=== PATIENT | female | born 1950 | race Caucasian/White ===

== ENCOUNTER 2020-05-08 07:51 | Outpatient (CLI) | payer MEDICARE, SELFPAY ==
[2020-05-08 08:01] LABS: Basophils Absolute Auto 0.05 K/mm3 (0.00-0.10); Basophils Percent Auto 1.1 % (0.0-1.0); Eosinophils Absolute Auto 0.09 K/mm3 (0.02-0.50); Eosinophils Percent Auto 1.9 % (1.0-6.0); Hematocrit 43.4 % (35.0-42.0); Immature Granulocyte Absolute 0.01 K/mm3 (0.00-0.00); Immature Granulocyte Percent A 0.2 % (0.0-0.0); Lymphocytes Percent Auto 31.6 % (18.0-42.0); Mean Corpuscular HGB Conc 32.3 g/dL (32.0-36.0); Mean Corpuscular Hemoglobin 28.2 pg (27.0-31.0); Mean Corpuscular Volume 87.5 fL (78.0-102.0); Monocytes Absolute Auto 0.36 K/mm3 (0.10-0.90); Monocytes Percent Auto 7.6 % (2.0-11.0); Neutrophils Absolute Auto 2.7 K/mm3 (1.7-7.2); Neutrophils Percent Auto 57.6 % (50.0-70.0); Platelet Count Result 219 K/mm3 (150-420); Red Blood Count 4.96 M/mm3 (4.20-5.40); White Blood Count 4.7 K/mm3 (4.8-10.8)
[2020-05-08 08:37] LABS: Alanine Aminotransferase 44 U/L (14-59); Albumin Level 3.7 g/dL (3.4-5.0); Alkaline Phosphatase 109 U/L (46-116); Anion Gap 10.3 mmol/L (7-16); Aspartate Amino Transferase 33 U/L (15-37); Bilirubin,Total 0.5 mg/dL (0.00-1.00); Blood Urea Nitrogen 14 mg/dL (7-18); Calcium 8.9 mg/dL (8.5-10.1); Carbon Dioxide 29 mmol/L (21-32); Chloride 105 mmol/L (98-108); Cholesterol 189 mg/dL (0-200); Estimated Glomerular Filt Rate 40; Glucose 109 mg/dL (70-99); HDL Direct 55 mg/dL (40-60); LDL Cholesterol Calculated 115 mg/dL (<130); Osmolality Calculated 291 mOsm/kg (285-295); Potassium 4.3 mmol/L (3.5-5.1); Sodium 140 mmol/L (136-145); Triglycerides 95 mg/dL (0-150)
== END 2020-05-08 07:52 | disposition home or self-care (01) ==
LOC: CHSLAB 07:53
PROVIDERS: PCP Family Medicine; Visit Provider Family Medicine
DX: Z13.6 Encounter for screening for cardiovascular disorders (principal); Z00.00 Encounter for general adult medical examination without abnormal findings
CPT/HCPCS: 36415; 80053; 80061; 85025

== ENCOUNTER 2020-06-10 09:04 | Emergency (ER) | payer MEDICARE, SELFPAY ==
[2020-06-10 09:09] VITALS: BP 138/97; PULSE 72; RESP 20; TEMP 36.8; O2SAT 100
--- NOTE | 2020-06-10 09:17 | ED.DENTAL ---
HPI - Dental/Oral General Chief complaint: Dental/Oral Stated complaint: tooth pain Time Seen by Provider: 06/10/20 09:17 Source: patient and RN notes reviewed Mode of arrival: ambulatory Limitations: no limitations History of Present Illness HPI Narrative: 69-year-old female who [facility] with complaints of dental pain to right lower molar where filling fell out of tooth on . Patient states that pain and swelling to gum didn't start till Wednesday on the . She has been taking Ibuprofen and Tylenol for her discomfort. Patient has numerous teeth on the bottom which have decay and are in need of repair or extraction. Patient states she has an appointment on the with her dentist. Patient has mild swelling to right lower jaw area with discomfort to jaw and gum. Patient states that pain is aggravated with eating and cold liquids, states has been maintaining soft diet. MD Complaint: tooth pain Location: Tooth # (28) Onset (ago): day(s) (3) Duration: constant Severity: mild Severity scale (1-10): 3 Relieving factors: NSAIDs Exacerbating factors: chewing and cold Context: history of dental caries Associated symptoms: gum swelling and other (right jaw pain) Treatment prior to arrival: oral analgesic Related Data Allergies Allergy/AdvReac Type Severity Reaction Status Date / Time Penicillins Allergy Intermediate Unknown Verified 06/10/20 09:19 Review of Systems Review of Systems: Narrative: CONSTITUTIONAL: Denies fever, chills, or sweats. EYES: Denies visual changes, redness, or discharge. ENT: Denies rhinorrhea, congestion, sore throat, or otalgia.Swelling gum area right lower tooth where filling fell out, with some mild swelling to right jaw region. Denies any difficulty with swallowing No Will angina noted. CARDIOVASCULAR: Denies chest pain, palpitations, or edema. RESPIRATORY: Denies cough or dyspnea. GASTROINTESTINAL: Denies abdominal pain, nausea, vomiting, or diarrhea. GENITOURINARY: Denies dysuria or hematuria. SKIN: Denies rash or itching. MUSCULOSKELETAL: Denies back pain, joint pain, or myalgia. NEUROLOGIC: Denies headache, numbness, or weakness. PSYCHIATRIC: Denies anxiety or depression. All systems reviewed & are unremarkable except as noted in HPI and below PMFSH Past Medical History Medical History (Updated 06/10/20 @ 10:08 by Tere Gabriel NP) Acarine dermatosis Surgical History Surgical History (Updated 06/10/20 @ 09:34 by Tere Gabriel NP) History of tubal ligation Hx of cholecystectomy Social History Social History (Updated 06/10/20 @ 09:34 by Tere Gabriel NP) Smoking status: Never smoker Alcohol intake: never Substance use: never Living arrangements: with family Occupation/Education: retired Gender identity (if verbalized by the patient): Female Comments At time of signature, agree with nursing past medical, surgical, social and family history. There is no relevant family history pertinent to the presenting complaint Exam Narrative: Exam Narrative: GENERAL: Well-appearing, well-nourished, and in no acute distress. HEAD: Normocephalic, atraumatic. EYES: PERRLA and EOMI. ENT: Nares clear, no rhinorrhea or epistaxis. Mucous membranes moist.TM's normal with good light reflex, throat pink with no swelling, No Will angina noted, redness and swelling around #28 tooth where filling fell out. Patient has numerous other teeth which are decayed. NECK: Supple.no lymphadenopathy CHEST: Clear to auscultation. No respiratory distress.SAO2 100% on room air. HEART: Regular rate and rhythm. No murmur heard. Normal peripheral pulses. ABDOMEN: Soft, nontender, nondistended, normal active bowel sounds. EXTREMITIES: Normal range of motion. No edema. SKIN: Warm, dry, no rash. NEURO: No focal deficits. Alert and oriented x3. Course Vital Signs Vital signs: Vital Signs Temperature 36.8 C 06/10/20 09:09 Pulse Rate 72 06/10/20 09:09 Respiratory Rate 20
== END 2020-06-10 09:43 | disposition home or self-care (01) ==
PROVIDERS: Emergency Provider Registered Nurse
DX: K04.7 Periapical abscess without sinus (principal); K08.89 Other specified disorders of teeth and supporting structures
CPT/HCPCS: 99213; G0463

== ENCOUNTER 2021-10-08 16:51 | Outpatient (CLI) | payer MEDICARE, SELFPAY ==
--- NOTE | ~2021-10-08 | XR_ITS ---
EXAMINATION: XR chest 2V EXAM DATE: 10/08/2021 17:20 INDICATION: Excessive weight loss in 3 wks . TECHNIQUE: Frontal and lateral projections of the chest obtained and reviewed. There is no prior manuelito dy for comparison. FINDINGS: The lungs are clear. There are no pleural effusions. The cardiomediastinal silhouette is within normal limits. There is no pneumothorax suspected. Mild lower thoracic dextroscoliosis. Ther e are cholecystectomy clips. IMPRESSION: No acute cardiopulmonary findings. 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
[2021-10-08 17:15] LABS: Basophils Absolute Auto 0.05 K/mm3 (0.00-0.10); Basophils Percent Auto 0.8 % (0.0-1.0); Eosinophils Absolute Auto 0.08 K/mm3 (0.02-0.50); Eosinophils Percent Auto 1.2 % (1.0-6.0); Hematocrit 42.8 % (35.0-42.0); Hemoglobin 13.8 g/dL (11.7-13.8); Immature Granulocyte Absolute 0.01 K/mm3 (0.00-0.00); Immature Granulocyte Percent A 0.2 % (0.0-0.0); Lymphocytes Absolute Auto 2.24 K/mm3 (1.10-4.50); Lymphocytes Percent Auto 34.6 % (18.0-42.0); Mean Corpuscular HGB Conc 32.2 g/dL (32.0-36.0); Mean Corpuscular Hemoglobin 28.9 pg (27.0-31.0); Mean Corpuscular Volume 89.7 fL (78.0-102.0); Mean Platelet Volume 9.6 fl (9.2-11.8); Monocytes Absolute Auto 0.51 K/mm3 (0.10-0.90); Monocytes Percent Auto 7.9 % (2.0-11.0); Neutrophils Absolute Auto 3.6 K/mm3 (1.7-7.2); Neutrophils Percent Auto 55.3 % (50.0-70.0); Platelet Count Result 243 K/mm3 (150-420); Red Blood Count 4.77 M/mm3 (4.20-5.40); White Blood Count 6.5 K/mm3 (4.8-10.8)
[2021-10-08 17:46] LABS: Alanine Aminotransferase 32 U/L (14-59); Albumin Level 3.9 g/dL (3.4-5.0); Alkaline Phosphatase 125 U/L (46-116); Anion Gap 10 mmol/L (8-16); Aspartate Amino Transferase 20 U/L (15-37); Bilirubin,Total 0.2 mg/dL (0.00-1.00); Blood Urea Nitrogen 14 mg/dL (7-18); Calcium 9.1 mg/dL (8.5-10.1); Carbon Dioxide 28 mmol/L (21-32); Chloride 105 mmol/L (98-108); Estimated Glomerular Filt Rate 38; Glucose 103 mg/dL (70-99); Magnesium 2.3 mg/dL (1.8-2.4); Osmolality Calculated 296 mOsm/kg (285-295); Potassium 3.6 mmol/L (3.5-5.1); Sodium 143 mmol/L (136-145); Thyroid Stimulating Hormone 3.45 uIU/mL (0.36-3.74); Total Protein 7.5 g/dL (6.4-8.2)
[2021-10-11 14:11] LABS: Vitamin D 25 Hydroxy 19 ng/mL (30-100)
== END 2021-10-08 16:52 | disposition home or self-care (01) ==
LOC: CHSLAB 16:54
PROVIDERS: PCP Nurse Practitioner Family; Visit Provider Nurse Practitioner Family
DX: R63.4 Abnormal weight loss (principal); E55.9 Vitamin D deficiency, unspecified
CPT/HCPCS: 36415; 71046; 80053; 82306; 82977; 83735; 84443; 85025

== ENCOUNTER 2021-10-10 12:06 | Outpatient (CLI) | payer MEDICARE, SELFPAY ==
--- NOTE | ~2021-10-10 | US_ITS ---
EXAMINATION: US abdomen complete EXAM DATE: 10/10/2021 14:54 INDICATION: Chronic Kidney Disease; stage 3 . TECHNIQUE: Multiple grayscale and Doppler images of the complete abdomen were obtained (by a technolo gist who performed the scan) and subsequently reviewed. There is no prior study for comparison. FINDINGS: The abdominal aorta is normal in caliber. Visualized portion IVC is patent. The pancreatic head a nd body are normal in appearance. The pancreatic tail is not visualized. There is echogenic liver parenchyma, hepatic steatosis. There are no focal liver lesions identified. There is no evidence of intrahepatic biliary duct dilation. Portal venous flow was seen in the he patopedal, normal direction and has normal Doppler waveform. Common bile duct measures 6 mm, which is normal. The gallbladder fossa is unremarkable. Right kidney: There is normal contour and echogenicity. It measures 10.0 x 3.8 x 4.6 centimeters. There are no focal renal lesions identified. There is no hydronephrosis. Left kidney: There is normal contour and echogenicity. It measures 8.9 x 3.9 x 3.7 centimeters. Th ere are no focal renal lesions identified. There is no hydronephrosis. The spleen measures 9 cm in greatest dimension, with scattered calcified granulomata. IMPRESSION: 1. Hepatic steatosis. 2. Mild left renal atrophy. Reviewed, dictated and finalized at location G. EY RODMAN
[2021-10-10 12:32] LABS: Add Urine Microscopic? YES; Appearance Urine Clear (Clear); Bilirubin Urine Negative (Negative); Blood Urine Negative (Negative); Color Urine Light Yellow (Yellow); Glucose Urine UA Negative (Negative); Ketones Urine Negative (Negative); Leukocyte Esterase Ur 1+ (Negative); Nitrate Urine Negative (Negative); Protein Urine Negative (Negative); Specific Grav Ur <= 1.005 (1.010-1.020); Urobilinogen Urine 0.2 mg/dL (0.2-1.0); pH Urine 5.5 (5.0-8.0)
[2021-10-10 12:58] LABS: Bacteria Urine 1+ /hpf; RBC Urine 0-2 /hpf (0-2); Squamous Epithelial Cell Urine Few /hpf (Few)
[2021-10-10 13:06] LABS: Creatinine Urine 40.13 mg/dL (40-278); MALB Creatinine Ratio 32.3 mg/g (0-30); Microalbumin Urine Random < 13.0 mg/L
[2021-10-10 13:08] LABS: GGT 30 U/L (5-55)
== END 2021-10-10 12:07 | disposition home or self-care (01) ==
PROVIDERS: PCP Nurse Practitioner Family; Visit Provider Nurse Practitioner Family
DX: N18.30 Chronic kidney disease, stage 3 unspecified (principal); R79.89 Other specified abnormal findings of blood chemistry; R74.8 Abnormal levels of other serum enzymes
CPT/HCPCS: 36415; 76700; 81001; 82043; 82977

== ENCOUNTER 2022-12-07 03:12 | Emergency (ER) | payer MEDICARE, SELFPAY ==
--- NOTE | ~2022-12-07 | XR_ITS ---
EXAMINATION: XR knee LT 3V DATE: 12/07/2022 03:31 INDICATION: Nontraumatic left knee pain TECHNIQUE: Anteroposterior, oblique and crosstable lateral views of the left knee were obtained COMPARISON: None. FINDINGS: Alignment is normal. No fracture. Slight joint space narrowing in the medial compartment consistent with at least minimal osteoarthritis which could be underestimated on nonweightbearing imaging. No aga int effusion/layering lipohemarthrosis. Tara-Stieda lesion with small amount of heterotopic oss ification along the medial side of the medial femoral condyle consistent with chronic medial collater al ligament sprain. Soft tissues are unremarkable. IMPRESSION: 1. No left knee joint effusion or acute onset mild to . 2. Tara-Stieda lesion consistent with chronic medial collateral ligament sprain. 3. At least mild osteoarthritis at the medial compartment of the left knee. 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
[2022-12-07 03:18] VITALS: BP 183/105; PULSE 77; RESP 16; TEMP 36.5; O2SAT 100
--- NOTE | 2022-12-07 03:18 | WPDEDEXPGENP ---
HPI - General Ped General Chief complaint: Extremity Injury, Lower Stated complaint: knee injury Time Seen by Provider: 12/07/22 03:17 Source: patient Mode of arrival: wheelchair Limitations: no limitations Nursing Documentation: reviewed/agree History of Present Illness HPI narrative: Patient complains of left knee pain that started while walking her dog. She does not remember sustaining any injury Or trauma. She has had her about 2 weeks ago but that went away. And she also said back in September when she was flying a plain and was in her seat after that she had pain for about 3 days and then it went away. In the same left knee. she says her some walk on it she took ibuprofen without any relief she also put some Biofreeze on it without any relief. Is worse when she walks on it. It hurts to straighten it out or bend. She had some back pain earlier but that is gone. Denies any other complaints. Reasonably healthy has not seen a doctor in over a year. She is not any medications Related Data Home Medications Medication Instructions Recorded Confirmed No Home Medications 12/07/22 12/07/22 Allergies Allergy/AdvReac Type Severity Reaction Status Date / Time clindamycin Allergy Severe Rash Verified 12/07/22 03:21 Penicillins Allergy Mild Rash Verified 12/07/22 03:21 Pediatric Review of Systems Constitutional: Denies fever Eyes: Denies eye pain ENT: Denies ear pain Cardiovascular: Denies chest pain Respiratory: Denies cough or dyspnea Gastrointestinal: Denies abdominal pain, nausea, vomiting or diarrhea Genitourinary: Denies dysuria Musculoskeletal: Reports back pain, joint swelling and joint pain PMFSH Past Medical History Medical History Acarine dermatosis Hammer toe of right foot Surgical History Surgical History History of tubal ligation Hx of cholecystectomy Family History Family History Mother Family history of type 2 diabetes mellitus Ovarian cancer Father Acute myocardial infarction Social History Social History Smoking status: Never smoker Alcohol intake: never Substance use: never Living arrangements: with family Additional living arrangements comments: Has 2 children: Daughter lives locally, Son lives in [place]. Occupation/Education: retired Gender identity (if verbalized by the patient): Female Pediatric Exam Narrative: Physical exam: left hip full range of motion nontender left knee he has slightly less than full extension. She is able flex it fine. Mild diffuse tenderness without any swelling or increased warmth or erythema. No joint line tenderness negative patellar apprehension test. Left knee is stable to anterior and posterior drawer test Bhanu. Stable to varus and valgus stress. Left ankle normal DP and PT pulse are +2. Medical Decision Making MDM Narrative Medical decision making narrative: Patient complains of relatively acute onset of left knee pain gradually worsening over the day. Not relieved with ibuprofen or Biofreeze. Pain is worse now. She had similar pain about 2 weeks ago. She has no other complaints. X-ray was done to rule arthritis dislocation fracture or tumor and patient was given Toradol 30 mg IM Knee immobilizer was placed. Evaluation was discussed questions were asked and answered and patient agree with plan. She is given a list of orthopedists that she could follow-up with she was instructed to get some crutches along with her knee immobilizer. Take Tylenol ibuprofen as needed for pain. Imaging Data Attestation: I personally reviewed and interpreted this imaging study as follows: My impression: x-ray of the left knee show no fracture or dislocation there may be
[2022-12-07] MEDS: KETOROLAC 30 MG/ML VIAL (*BKC) IM (03:32)
[2022-12-07 04:01] VITALS: BP 155/88; PULSE 68; RESP 12; O2SAT 97
== END 2022-12-07 04:03 | disposition home or self-care (01) ==
PROVIDERS: Emergency Provider Emergency Medicine
DX: M25.562 Pain in left knee (principal)
CPT/HCPCS: 73562; 96372; 99284; J1885; L1830

== ENCOUNTER 2023-12-14 06:42 | Emergency (ER) | payer MEDICARE, SELFPAY ==
--- NOTE | ~2023-12-14 | XR_ITS ---
Right wrist Technique: PA, oblique, lateral, and ulnar deviation views were obtained. Clinical History: Pain Findings: Possible small acute fracture the dorsal triquetrum on lateral view. No other fracture or d islocation seen. Joint spaces are preserved. Soft tissues are unremarkable. Impression: Probable small acute fracture of the dorsal triquetrum on lateral view. Reviewed, dictated and finalized at location . Impression: Probable small acute fracture of the dorsal triquetrum on lateral view.
--- NOTE | ~2023-12-14 | CT_ITS ---
Noncontrast CT scan of the right wrist CLINICAL HISTORY: Injury TECHNIQUE: Axial noncontrast imaging of the wrist was performed. Sagittal and coronal reformatted brian ges were constructed. Dose reduction technique was used on this scan by utilizing automated exposure control and iterative reconstruction technique. The dose-length product (DLP) was 384.26 mGy-cm. Findings: There is a small, acute, mildly displaced, linear fracture from the dorsal aspect of the tr iquetrum (axial image 59 for example, sagittal images 53-57). No other fracture or dislocation seen. Joint spaces are intact. There is mild soft tissue swelling overlying the fracture site. No other gross soft tissue abnormalit y seen. IMPRESSION: Small acute fracture of the dorsal triquetrum, as detailed above, which correlates with plain radiogr aphs. Reviewed, dictated and finalized at [facility]. IMPRESSION: Small acute fracture of the dorsal triquetrum, as detailed above, which correla darlene with plain radiographs.
[2023-12-14 06:48] VITALS: BP 176/84; PULSE 85; RESP 18; TEMP 36.3; O2SAT 97
--- NOTE | 2023-12-14 06:57 | ED.UPPEXIN ---
HPI - Extremity Injury (Upper) General Chief Complaint: Extremity Injury, Upper <Jamari Mccarthy MD - Last Filed: 12/14/23 07:00> Stated Complaint: fall <Jamari Mccarthy MD - Last Filed: 12/14/23 07:00> Time Seen by Provider: 12/14/23 06:55 <Jamari Mccarthy MD - Last Filed: 12/14/23 07:00> Source: patient <Jamari Mccarthy MD - Last Filed: 12/14/23 07:00> Mode of arrival: ambulatory <Jamari Mccarthy MD - Last Filed: 12/14/23 07:00> History of Present Illness HPI narrative: Patient is a 73-year-old female with significant past medical history presents today with a right wrist injury. Patient states she was at [facility] last night o'clock and fell on her right wrist. She fell with outstretched arm. She says that is very painful rash around the right wrist joint. <Jamari Mccarthy MD - Last Filed: 12/14/23 07:00> MD complaint: injury to: right and wrist <Jamari Mccarthy MD - Last Filed: 12/14/23 07:00> Onset (ago): day(s) <Jamari Mccarthy MD - Last Filed: 12/14/23 07:00> Other injuries: none <Jamari Mccarthy MD - Last Filed: 12/14/23 07:00> Handedness: right <Jamari Mccarthy MD - Last Filed: 12/14/23 07:00> Place: outdoors <Jamari Mccarthy MD - Last Filed: 12/14/23 07:00> Severity: mild <Jamari Mccarthy MD - Last Filed: 12/14/23 07:00> Relieving factors: none <Jamari Mccarthy MD - Last Filed: 12/14/23 07:00> Exacerbating factors: none <Jamari Mccarthy MD - Last Filed: 12/14/23 07:00> Context: fall <Jamari Mccarthy MD - Last Filed: 12/14/23 07:00> Associated symptoms: denies other symptoms <Jamari Mccarthy MD - Last Filed: 12/14/23 07:00> Related Data Home Medications: Home Medications Medication Instructions Recorded Confirmed No Home Medications 11/17/23 12/14/23 <Jamari Mccarthy MD - Last Filed: 12/14/23 07:00> Allergies/Adverse Reactions: Allergies Allergy/AdvReac Type Severity Reaction Status Date / Time clindamycin Allergy Severe Rash Verified 11/17/23 14:12 Penicillins Allergy Mild Rash Verified 11/17/23 14:12 <Jamari Mccarthy MD - Last Filed: 12/14/23 07:00> Review of Systems Review of Systems: All systems reviewed & are unremarkable except as noted in HPI and below <Jamari Mccarthy MD - Last Filed: 12/14/23 07:00> Constitutional: Constitutional: Reports no additional constitutional complaints <Jamari Mccarthy MD - Last Filed: 12/14/23 07:00> Eyes: Eyes: Reports no additional eye complaints <Jamari Mccarthy MD - Last Filed: 12/14/23 07:00> ENT: Reports system reviewed and no additional complaints, except as documented <Jamari Mccarthy MD - Last Filed: 12/14/23 07:00> Cardiovascular: Cardiovascular: Reports no additional cardiovascular complaints <Jamari Mccarthy MD - Last Filed: 12/14/23 07:00> Respiratory: Respiratory: Reports no additional respiratory complaints <Jamari Mccarthy MD - Last Filed: 12/14/23 07:00> Gastrointestinal: Gastrointestinal: Reports no additional gastrointestinal complaints <Jamari Mccarthy MD - Last Filed: 12/14/23 07:00> Genitourinary: Genitourinary: Reports no additional female genitourinary complaints <Jamari Mccarthy MD - Last Filed: 12/14/23 07:00> Musculoskeletal: Musculoskeletal: Reports arthralgias ( Right wrist) <Jamari Mccarthy MD - Last Filed: 12/14/23 07:00> Integumentary/Breasts: Skin/Breast: Reports system reviewed and no additional complaints, except as docu <Jamari Mccarthy MD - Last Filed: 12/14/23 07:00> Neurologic: Reports system reviewed and no additional complaints, except as documented <Jamari Mccarthy MD - Last Filed: 12/14/23 07:00> Psychiatric: Psychiatric: Reports no additional psychiatric complaints <Jamari Mccarthy MD - Last Filed: 12/14/23 07:00> Endocrine: Endocrine: Reports no additional endocrine complaints <Jamari Mccarthy MD - Last Filed: 12/14/23 07:00> Hematologic/Lym
[2023-12-14 08:48] VITALS: BP 173/83; PULSE 60; RESP 17; TEMP 36.9; O2SAT 98
== END 2023-12-14 08:48 | disposition home or self-care (01) ==
PROVIDERS: Emergency Provider Emergency Medicine; PCP Nurse Practitioner Family
DX: S62.91XA Unspecified fracture of right hand, initial encounter for closed fracture (principal); W18.39XA Other fall on same level, initial encounter; Y92.512 Supermarket, store or market as the place of occurrence of the external cause
CPT/HCPCS: 29125; 73110; 73200; 99284; L3908

== ENCOUNTER 2023-12-28 15:09 | Outpatient (CLI) | payer MEDICARE, SELFPAY ==
--- NOTE | ~2023-12-28 | XR_ITS ---
EXAMINATION: XR wrist RT min 3V INDICATION: Wrist fracture follow-up TECHNIQUE: Four views of the right wrist are obtained. COMPARISON: 12/14/2023 FINDINGS: There is an unchanged subtle osseous fragment projecting dorsal to the triquetrum on the la teral view. There is mild associated soft tissue swelling. No additional fracture is identified. Bone alignment is normal. IMPRESSION: 1. Unchanged subtle fracture of the dorsal triquetrum. Reviewed, dictated and finalized at location F.
== END 2023-12-28 15:10 | disposition home or self-care (01) ==
LOC: ANHIMG 15:14
PROVIDERS: PCP Nurse Practitioner Family; Visit Provider Physician Assistant Surgical
DX: S62.91XA Unspecified fracture of right hand, initial encounter for closed fracture (principal); X58.XXXA Exposure to other specified factors, initial encounter
CPT/HCPCS: 73110

== ENCOUNTER 2024-04-14 13:28 | Outpatient (CLI) | payer MEDICARE, SELFPAY ==
--- NOTE | ~2024-04-14 | DEXA_ITS ---
? Bone Density Report? Name:? MESHA ZHOU Patient ID:??? [id number] Age:? 73 Sex:? Female Ethnicity:? White Date of : 1950 Indication: postmenopausal; screening for osteoporosis; height loss; prior fracture; Referring Provider: Italia Rasheed Study: Bone densitometry was performed. Exam Date: April 14, 2024 Accession number: [id number] Bone Density: Region? BMD??? T-score? Z-score?? Classification AP Spine(L1-L4)? 0.843?? -1.9?0.5? Osteopenia Femoral Neck (Left)? 0.642?? -1.9? 0.1? Osteopenia Total Hip (Left)? 0.875?? -0.5?1.2? Normal Femoral Neck (Right)? 0.610?? -2.1? -0.1? Osteopenia Total Hip (Right)? 0.799?? -1.2? 0.5? Osteopenia Femoral Neck Mean? 0.626?? -2.0? 0.0? Osteopenia Total Hip Mean? 0.837?? -0.9? 0.8? Normal World Health Organization criteria for BMD impression classify patients as: Normal (T-score at or above -1.0), Osteopenia (T-score between -1.0 and -2.5), or Osteoporosis (T-score at or below -2.5). 10-year Fracture Risk(1): Major Osteoporotic Fracture? 19% Hip Fracture? 4.4% Reported Risk Factors: [place] (), Neck BMD=0.610, BMI=33.7, previous fracture (1) FRAX? Version 3.08. Fracture probability calculated for an untreated patient. Fracture probability may be lower if the patient has received treatment. Clinical Information Provided by Patient: Has had a low trauma fracture Patient maximum height was 66 Menopause Age: 56 No regular weight bearing exercise Does not regularly consume dairy products Drinks caffeinated beverages Onset of menses at age 14 Impression: The patient has low bone mass, based on the Right Femoral Neck T- score. The patient has risk factors, including: previous fracture. Discussion: BONE DENSITY IS LOW AT ONE OR MORE SKELETAL SITES. This patient's lowest T-score is low at one or more skeletal sites.? It meets the World Health Organization's (WHO) criteria for ?low bone mass?? (T-score between -1.0 and -2.5).? The patient's 10-year risk of fracture as calculated by FRAX is less than the threshold where pharmacological therapy is recommended by the National Osteoporosis Foundation (NOF).? However, all treatment decisions require clinical judgment and consideration of individual patient factors, including patient preferences, comorbidities, previous drug use, risk factors not captured in the FRAX model (e.g., frailty, falls, vitamin D deficiency, increased bone turnover, interval significant decline in bone density) and possible under or overestimation of fracture risk by FRAX. The patient should follow a healthful lifestyle (good nutrition with
== END 2024-04-14 13:29 | disposition home or self-care (01) ==
LOC: CHSIMG 13:28
PROVIDERS: PCP Nurse Practitioner Family; Visit Provider Nurse Practitioner Family
DX: Z78.0 Asymptomatic menopausal state (principal); M85.89 Other specified disorders of bone density and structure, multiple sites
CPT/HCPCS: 77080